=== PATIENT | female | born 1995 | race Hispanic/Latino ===

== ENCOUNTER 2025-04-10 17:37 | Emergency (ER) | payer OTHER, SELFPAY ==
[2025-04-10 17:48] VITALS: BP 112/70; PULSE 109; RESP 18; TEMP 36.4; O2SAT 99
--- NOTE | 2025-04-10 17:50 | ED_ITS ---
HPI - Female Genitourinary General Chief complaint: Urogenital-Female Stated complaint: UTI Time Seen by Provider: 04/10/25 17:55 Source: patient Mode of arrival: ambulatory Limitations: no limitations History of Present Illness HPI Narrative: Juan is a 29-year-old female patient presenting to the clinic today with complaints of possible UTI times 4-5 days. She reports she is having burning, frequency, and urgency in a very foul-smelling urine. Is reporting some lower abdominal discomfort. She has taken azo for her symptoms. Denies any fevers, chills, body aches. Denies any back pain. Related Data Home Medications ?Medication ?Instructions ?Recorded ?Confirmed ?Last Taken ?Type clonazepam 0.5 mg tablet mg 04/10/25 Unknown History dextroamphetamine-amphetamine ER PO 04/10/25 Unknown History 15 mg 24hr capsule,extend release mirtazapine 30 mg tablet mg 04/10/25 Unknown History Allergies Allergy/AdvReac Type Severity Reaction Status Date / Time No Known Allergies Allergy Verified 04/10/25 17:46 Review of Systems Review of Systems: Pertinent positives per HPI. Patient denies any fever, chills, rash, headache, visual changes, dizziness, cough, runny nose, sore throat, shortness of breath, chest pain, palpitations, nausea, vomiting, diarrhea, constipation PMFSH Comments At the time of my signature, I reviewed and agree with the nursing past medical, surgical, social, and family history. There is no relevant family history pertinent to the patient complaint. Exam Narrative: General: Well-developed, well nourished, in no apparent distress. Head: Normocephalic, atraumatic. Cardio: Regular rate and rhythm, s1 and s2 normal, no murmur appreciated. Resp: Clear to auscultation bilaterally, no rhonchi, rales, wheezing or rubs. Abdomen: Soft, pliable, bowel sounds present in all quadrants, suprapubic tender to palpation, no organomegly, no CVAT tenderness. Course Course Level of Care: Express Care Visit Vital Signs Vital signs: Vital Signs Temperature 36.4 C 04/10/25 17:48 Pulse Rate 109 H 04/10/25 17:48 Respiratory Rate 18 04/10/25 17:48 Blood Pressure 112/70 04/10/25 17:48 Pulse Oximetry 99 04/10/25 17:48 Oxygen Delivery Room Air 04/10/25 17:48 Temperature 36.4 C 04/10/25 17:48 Pulse Rate 109 H 04/10/25 17:48 Respiratory Rate 18 04/10/25 17:48 Blood Pressure 112/70 04/10/25 17:48 Pulse Oximetry 99 04/10/25 17:48 Oxygen Delivery Room Air 04/10/25 17:48 MDM MDM Narrative Medical decision making narrative: At the time of visit patient is resting comfortably on the exam table. Patient appears to be nontoxic. Complaints of possible UTI times 4-5 days. She reports she is having burning, frequency, and urgency in a very foul-smelling urine. Is reporting some lower abdominal discomfort. She has taken azo for her symptoms. Denies any fevers, chills, body aches. Denies any back pain. On exam patient has soft, pliable, nondistended abdomen, no CVAT tenderness, some suprapubic tenderness, no organomegaly, bowel sounds present all 4 quadrants Labs: Urine culture was sent-unable to dip urine due to azo Plan: I suspect patient has UTI. Prescription for 5 day course of Bactrim was sent to the pharmacy. Patient is requesting Diflucan as she does get vaginal yeast infections with antibiotics. Supportive measures were discussed with the patient and they voiced understanding discharge instructions and agrees to treatment plan. Return precautions reviewed Differential Diagnosis Differential Diagnosis: Differential diagnostic considerations for female urogenital issues include urinary tract infection, bacterial vaginosis, cervicitis, ovarian cyst, vaginitis, STI exposure, ovarian torsion, ectopic , cyst of Bartholin?s gland, cystitis, dysmenorrhea. Discharge Plan Discharge Clinical Impression: Urinary tract infection Qualifiers: Urinary tract infection type: acute cystitis Hematuria presence: with hematuria Qualified Code(s): N30.01 - Acute cystitis with hematuria Patient Disposition: Home Condition: Stable Instructions: Antibiotic Form, Urinary Tract Infection in Women (ED) Additional Instructions: We will send urine for culture Take Bactrim DS and fluconazole as prescribed Increase fluids and stay well hydrated Wipe front to back. May use wet wipes. Avoid tub baths If sexually active- pee before and after intercourse. Wear cotton panties Avoid tight clothing up against the genitals Follow up with your PCP in 1 week if symptoms persist. Patient Language: [place] Prescriptions: New sulfamethoxazole-trimethoprim [Bactrim DS] 800-160 mg tablet 1 tablet PO Q12H 5 Days Qty: 10 0RF fluconazole 150 mg tablet 150 mg PO ONCE Qty: 2 0RF Rx Instructions: as a single dose. May repeat in 72 hours if needed. No Action clonazepam 0.5 mg tablet mirtazapine 30 mg tablet dextroamphetamine-amphetamine 15 mg capsule,extended release 24hr PO Follow-up/Referrals: PHYSICIAN NOT ON STAFF,NONSTAFF [Primary Care Provider] Time of Disposition: 18:02 Quality NIHSS Nursing Documentation ED NIHSS nursing documentation: reviewed/agree
== END 2025-04-10 18:05 | disposition home or self-care (01) ==
PROVIDERS: Emergency Provider Nurse Practitioner Family
DX: N30.01 Acute cystitis with hematuria (principal)
CPT/HCPCS: 87077; 87086; 87186; 99213; G0463